=== PATIENT | female | born 1990 | race African-American/Black ===

== ENCOUNTER 2018-06-20 22:31 | Inpatient (IN) | payer OTHER ==
[~2018-06-20] VITALS: Ht 154.9 cm; Wt 91.9 kg
--- NOTE | ~2018-06-20 | EKG ---
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
--- NOTE | ~2018-06-20 | 2DMMODE ---
[facility] [address] [place] [address] 2 D/M-MODE ECHOCARDIOGRAM Name: CHIDI HARDING Room #: 211-P [facility] IN ..#: [id number] Admission: 06/21/18 Attend Phys: Gustavo Griffin, Discharge: Date of : 86 Date of Service: 06/23/18 1404 Report #: [id number] THIS REPORT FOR: //name// APPROVED REPORT Study performed: 06/23/2018 13:08:37 EXAM: Comprehensive 2D, Doppler, and color-flow Echocardiogram Patient Location: In-Patient Room #: 211 Status: routine BSA: 1.87 HR: 88 bpm BP: 122/80 mmHg Rhythm: NSR Other Information Study Quality: Technically Limited Technically limited study due to body habitus. Indications Diabetes CAD Chest Pain Hypertension/HDD Echo Enhancing Agent Indication: Endocardial border delineation Agent(s) / Amount(s) Used: Optison 4 cc 2D Dimensions RVDd: 28.06 mm IVSd: 7.85 (7-11mm) LVOT Diam: 18.86 (18-24mm) LVDd: 43.21 mm PWd: 7.41 (7-11mm) Ascending Ao: 22.90 (22-36mm) LVDs: 32.70 (25-40mm) Aortic Root: 23.60 mm IVC: 12.00 mm Volumes Left Atrial Volume (Systole) Single Plane 4CH: 36.56 mL Single Plane 2CH: 33.47 mL LA ESV Index: 20.00 mL/m2 Aortic Valve [facility] [address] [place] [address] 2 D/M-MODE ECHOCARDIOGRAM Name: CHIDI HARDING Jamar Room #: 211-P [facility]#: [id number] Admission: 06/21/18 Attend Phys: Gustavo Griffin, Discharge: Date of : 86 Date of Service: 06/23/18 1404 Report #: [id number] AoV Peak Freddy.: 1.61 m/s AO Peak Gr.: 10.32 mmHg LVOT Max P.57 mmHg LVOT Max V: 0.94 m/s KEVIN Vmax: 1.64 cm2 Mitral Valve E/A Ratio: 1.4 MV Decel. Time: 178.80 ms MV E Max Freddy.: 1.01 m/s MV A Freddy.: 0.72 m/s MV PHT: 51.85 ms IVRT: 79.58 ms Pulmonary Valve PV Peak Freddy.: 1.03 m/s PV Peak Gr.: 4.22 mmHg Pulmonary Vein P Vein S: 0.40 m/s P Vein A: 0.29 m/s P Vein D: 0.29 m/s P Vein A Dur.: 93.4 msec P Vein S/D Ratio: 1.38 Tricuspid Valve RAP Estimate: 5.00 mmHg Left Ventricle The left ventricle is normal size. There is normal left ventricular wall thickness. The left ventricular systolic function is normal. The left ventricular ejection fraction is within the normal range. LVEF is 55%. The left ventricular diastolic function is normal. Right Ventricle The right ventricle is normal size. The right ventricular systolic function is normal. Atria The left atrium size is normal. The right atrium size is normal. Aortic Valve The aortic valve is normal in structure. No aortic regurgitation is present. There is no aortic valvular stenosis. Mitral Valve The mitral valve is normal in structure. Trace mitral regurgitation. No evidence of mitral valve stenosis. [facility] [address] [place] [address] 2 D/M-MODE ECHOCARDIOGRAM Name: CHIDI HARDING Room #: 211-P [facility] IN .R.#: [id number] Admission: 06/21/18 Attend Phys: Gustavo Griffin, Discharge: Date of : 86 Date of Service: 06/23/18 1404 Report #: [id number] Tricuspid Valve The tricuspid valve is normal in structure. There is no tricuspid valve regurgitation noted. Unable to assess PA pressure. Pulmonic Valve Pulmonic valve is not well visualized. Trace pulmonic regurgitation. Great Vessels The aortic root is normal in size. IVC is normal in size and collapses >50% with inspiration. Pericardium There is no pericardial effusion. <Conclusion> The left ventricle is normal size. LVEF is 55%. The aortic valve is normal in structure. The mitral valve is normal in structure. Trace mitral regurgitation. The tricuspid valve is normal in structure. There is no tricuspid valve regurgitation noted. Unable to assess PA pressure. Pulmonic valve is not well visualized. Trace pulmonic regurgitation. The aortic root is normal in size. There is no pericardial effusion. <ELECTRONICALLY SIGNED> By: Marcelino Sotelo MD 06/23/18 1404 1404 1404 Marcelino Sotelo MD /INF
--- NOTE | ~2018-06-20 | EKG ---
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
[2018-06-20 22:33] VITALS: BP 163/91
[2018-06-20] MEDS ORDERED: COREG6.25 MG PO (22:52)
[2018-06-20] MEDS ORDERED: ATORVASTATIN CA40 MG PO (22:52)
[2018-06-20] MEDS ORDERED: PLAVIX 75 MG TA75 M1 PO (22:52)
[2018-06-20] MEDS ORDERED: LANTUS100 UNIT/M SUBQ (22:53)
[2018-06-20] MEDS ORDERED: NOVOLOG100 UNIT/1 SUBQ ×2 (22:55→22:57)
[2018-06-20 23:13] LABS: HEMATOCRIT 37.3 % (37.0-47.0); HEMOGLOBIN 12.4 gm/dL (12.0-15.0); MCH 29.3 pg (26.0-34.0); MCHC 33.4 g/dL (28.0-37.0); MCV 87.7 fL (80.0-100.0); RBC 4.25 mil/uL (4.20-5.00); WBC 11.3 thou/uL (4.0-11.0)
[2018-06-20 23:15] LABS: ANION GAP 8 mmol/L (7-16); BUN 15 mg/dL (7-18); CALCIUM 9.2 mg/dL (8.5-10.1); CHLORIDE 100 mmol/L (98-107); CO2 27 mmol/L (21-32); CREATININE 0.7 mg/dL (0.6-1.0); GLUCOSE 368 mg/dL (74-106); POTASSIUM 3.6 mmol/L (3.5-5.1); SODIUM 135 mmol/L (136-145)
[2018-06-20 23:24] LABS: TROPONIN-I <0.06 ng/mL (<0.06)
[2018-06-21] VITALS (7 sets, daily range): BP systolic 106–151; BP diastolic 57–93
[2018-06-21 05:02] LABS: CHOLESTEROL 120 mg/dL (<200); HDL CHOLESTEROL 28 mg/dL (>40); LDL CHOLESTEROL 66 mg/dL (<100); TC:HDL 4.3 Ratio (Not establshd); TRIGLYCERIDE 131 mg/dL (<150); VLDL 26 mg/dL (<40)
[2018-06-21 05:04] LABS: SERUM ASSESSMENT Clear
[2018-06-22 04:27] VITALS: BP 109/60
[2018-06-22 07:41] VITALS: BP 133/83
[2018-06-22 08:21] LABS: HEMATOCRIT 35.7 % (37.0-47.0); MCH 29.7 pg (26.0-34.0); MCHC 33.5 g/dL (28.0-37.0); MCV 88.7 fL (80.0-100.0); RBC 4.02 mil/uL (4.20-5.00); RDW 14.3 % (10.5-14.5); WBC 10.3 thou/uL (4.0-11.0)
[2018-06-22 08:34] LABS: CALCIUM 9.1 mg/dL (8.5-10.1); CREATININE 0.7 mg/dL (0.6-1.0); MAGNESIUM 1.4 mg/dL (1.8-2.4)
[2018-06-22 11:19] VITALS: BP 113/65
[2018-06-22 17:17] VITALS: BP 131/81
[2018-06-22 19:23] VITALS: BP 115/73
[2018-06-23 04:01] VITALS: BP 98/59
[2018-06-23 04:07] LABS: HEMATOCRIT 34.9 % (37.0-47.0); HEMOGLOBIN 11.6 gm/dL (12.0-15.0); MCH 29.3 pg (26.0-34.0); MCHC 33.3 g/dL (28.0-37.0); RBC 3.97 mil/uL (4.20-5.00); RDW 13.8 % (10.5-14.5); WBC 9.4 thou/uL (4.0-11.0)
[2018-06-23 04:18] LABS: CALCIUM 8.5 mg/dL (8.5-10.1); CREATININE 0.7 mg/dL (0.6-1.0); MAGNESIUM 1.3 mg/dL (1.8-2.4); POTASSIUM 3.7 mmol/L (3.5-5.1)
[2018-06-23 08:09] VITALS: BP 114/70
[2018-06-23 10:56] VITALS: BP 122/80
[2018-06-23] MEDS ORDERED: XANAX 0.5 MG0.5 M1 PO (12:08)
[2018-06-23] MEDS ORDERED: ASPIR 8181 MG PO (12:08)
[2018-06-23] MEDS ORDERED: LANTUS100 UNIT/M SUBQ (12:10)
[2018-06-23] MEDS ORDERED: IMDUR 30 MG TAB30 M1 PO (12:10)
[2018-06-23] MEDS ORDERED: NORCO 5-325 TA1 EACH PO (12:11)
[2018-06-23 14:45] VITALS: BP 122/80
[2018-06-23 15:03] VITALS: BP 117/74
[2018-06-23 15:58] VITALS: BP 122/80
== END 2018-06-23 15:30 | disposition home or self-care (01) | DRG 313 ==
LOC: ER 22:31 → EROBS 06-21 00:03 → 2N 06-21 00:03
PROVIDERS: Internal Medicine; Nurse Practitioner Acute Care; Student in an Organized Health Care Education/Training Program
DX: R07.9 Chest pain, unspecified (principal); I10 Essential (primary) hypertension; E11.9 Type 2 diabetes mellitus without complications; I25.10 Atherosclerotic heart disease of native coronary artery without angina pectoris; F41.9 Anxiety disorder, unspecified; E78.5 Hyperlipidemia, unspecified; F17.210 Nicotine dependence, cigarettes, uncomplicated; I25.2 Old myocardial infarction; Z95.5 Presence of coronary angioplasty implant and graft; Z79.4 Long term (current) use of insulin; Z79.899 Other long term (current) drug therapy; Z88.8 Allergy status to other drugs, medicaments and biological substances; Z83.3 Family history of diabetes mellitus; Z71.6 Tobacco abuse counseling; Z28.21 Immunization not carried out because of patient refusal
CPT/HCPCS: 10081

== ENCOUNTER 2018-07-06 04:23 | Emergency (ER) | payer OTHER ==
[~2018-07-06] VITALS: Ht 154.9 cm; Wt 90.7 kg
--- NOTE | ~2018-07-06 | EKG ---
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
[~2018-07-06 04:23] MED LIST: ASPIR 8181 MG PO; ATORVASTATIN CA40 MG PO; COREG6.25 MG PO; IMDUR 30 MG TAB30 M1 PO; LANTUS100 UNIT/M SUBQ; NORCO 5-325 TA1 EACH PO; NOVOLOG100 UNIT/1 SUBQ; PLAVIX 75 MG TA75 M1 PO; XANAX 0.5 MG0.5 M1 PO
[2018-07-06 05:10] LABS: AMP/METHAMP Negative (Negative); BARBITURATES Negative (Negative); BENZODIAZEPINES Negative (Negative); COCAINE Negative (Negative); METHADONE Negative (Negative); OPIATES POSITIVE (Negative); PCP Negative (Negative)
[2018-07-06] MEDS ORDERED: ACETAMINOPHEN-1 EAC1 PO (05:18)
[2018-07-06 06:12] VITALS: BP 134/86
== END 2018-07-06 06:18 | disposition home or self-care (01) ==
LOC: ER 04:23
PROVIDERS: Emergency Medicine
DX: R07.89 Other chest pain (principal); I25.10 Atherosclerotic heart disease of native coronary artery without angina pectoris; E11.9 Type 2 diabetes mellitus without complications; F41.9 Anxiety disorder, unspecified; I10 Essential (primary) hypertension; E78.5 Hyperlipidemia, unspecified; Z87.891 Personal history of nicotine dependence; Z88.6 Allergy status to analgesic agent; Z88.8 Allergy status to other drugs, medicaments and biological substances; Z95.5 Presence of coronary angioplasty implant and graft; Z79.4 Long term (current) use of insulin